=== PATIENT | female | born 1990 | race Hispanic/Latino ===

== ENCOUNTER 2017-12-11 13:23 | Inpatient (IN) | payer MEDICAID ==
[~2017-12-11] VITALS: Ht 157.5 cm; Wt 95.7 kg
[2017-12-11 13:54] LABS: APPEARANCE,URINE Turbid (CLEAR); BILIRUBIN,URINE Negative (NEGATIVE); COLOR,URINE Yellow (YELLOW); GLUCOSE, URINE (UA) Negative (NEGATIVE); KETONES,URINE 15 mg/dL (NEGATIVE); LEUKOCYTE ESTERASE ,URINE Small (NEGATIVE); NITRATE,URINE Negative (NEGATIVE); OCCULT BLOOD,URINE Negative (NEGATIVE); PROTEIN,URINE Negative (NEGATIVE)
[2017-12-11 14:14] LABS: BACTERIA,URINE Rare /HPF (None Seen); RBC,URINE 0-1 /HPF (0-1); SQUAMOUS EPITHELIAL CELL,UR Few /HPF (0-2)
[2017-12-11] MEDS ORDERED: CALCIUM GLUCONATE 1 GM/10 ML VIAL IV PRN (16:30)
[2017-12-11] MEDS ORDERED: MAGNESIUM 4GM PREMIX 100ML 100 ML IV SCH (16:30)
[2017-12-11 16:51] LABS: AMPHET/METH SCREEN,URINE NEGATIVE (NEGATIVE); BARBITURATE SCREEN, URINE NEGATIVE (NEGATIVE); BENZODIAZEPINES SCREEN,URINE NEGATIVE (NEGATIVE); CANNABINOID SCREEN,URINE NEGATIVE (NEGATIVE); COCAINE SCREEN,URINE NEGATIVE (NEGATIVE); OPIATE SCREEN,URINE NEGATIVE (NEGATIVE); PHENCYCLIDINE SCREEN,URINE NEGATIVE (NEGATIVE)
[2017-12-11] MEDS ORDERED: MAGNESIUM SULFATE 1,000 ML IV ONE (16:53)
[2017-12-11] MEDS ORDERED: AMPICILLIN 2GM+NS 100ML 100 ML IV ONE (16:53)
[2017-12-11] MEDS ORDERED: PHARMACY COMMUNICATION MISC SCH (17:00)
[2017-12-11] MEDS ORDERED: CALCIUM GLUCONATE 1 GM in SODIUM CHLORIDE 0.9% 50 ML IV PRN (17:00)
[2017-12-11] MEDS: CELESTONE SOLUSPAN 6 MG/ML 5ML VIAL IM SCH (17:14)
[2017-12-11] MEDS: AMPICILLIN 2GM+NS 100ML 100 ML IV SCH (17:14)
[2017-12-11] MEDS: MAGNESIUM SULFATE 1,000 ML IV PRN (17:15)
[2017-12-11 17:18] LABS: HEMATOCRIT 31.7 % (36-48); MEAN CORPUSCULAR HEMOGLOBIN 27.5 pg (27.0-33.0); MEAN CORPUSCULAR HGB CONC 33.2 g/dL (32.0-36.0); MEAN CORPUSCULAR VOLUME 82.8 fL (79-99); PLATELET COUNT (AUTO) 187 K/uL (130-400); RED BLOOD CELL COUNT(AUTO) 3.83 MIL/uL (4.00-5.50); RED CELL DISTRIBUTION WIDTH 15.2 % (11.0-15.5); WHITE BLOOD COUNT (AUTO) 8.4 K/uL (4.8-10.8)
[2017-12-12] MEDS: AMPICILLIN 2GM+NS 100ML 100 ML IV SCH ×2 (05:41→11:39)
[2017-12-12] MEDS: MAGNESIUM SULFATE 1,000 ML IV PRN (11:38)
[2017-12-12] MEDS: CELESTONE SOLUSPAN 6 MG/ML 5ML VIAL IM SCH (17:15)
[2017-12-12 19:00] VITALS: BP 120/70
[2017-12-13 06:34] LABS: BASOPHILS % (AUTO) 0.1 % (0.0-5.0); HEMATOCRIT 30.5 % (36-48); LYMPHOCYTES % (AUTO) 8.4 % (21.0-51.0); MEAN CORPUSCULAR HEMOGLOBIN 27.7 pg (27.0-33.0); MEAN CORPUSCULAR HGB CONC 33.2 g/dL (32.0-36.0); MEAN CORPUSCULAR VOLUME 83.5 fL (79-99); MONOCYTES % (AUTO) 5.7 % (3.0-13.0); NEUTROPHILS % (AUTO) 85.8 % (40.0-77.0); PLATELET COUNT (AUTO) 187 K/uL (130-400); RED BLOOD CELL COUNT(AUTO) 3.65 MIL/uL (4.00-5.50); RED CELL DISTRIBUTION WIDTH 14.8 % (11.0-15.5); WHITE BLOOD COUNT (AUTO) 10.3 K/uL (4.8-10.8)
[2017-12-13] MEDS ORDERED: LACTATED RINGERS 1000ML 1,000 ML IV ONE (21:11)
[2017-12-13] MEDS ORDERED: LACTATED RINGERS 1000ML 1,000 ML IV SCH (21:30)
[2017-12-14 03:16] LABS: HEPATITIS Bs ANTIGEN SCREEN P Negative (Negative)
[2017-12-14 05:55] LABS: BASOPHILS % (AUTO) 0.3 % (0.0-5.0); EOSINOPHILS % (AUTO) 0.4 % (0.0-8.0); HEMATOCRIT 32.1 % (36-48); LYMPHOCYTES % (AUTO) 16.8 % (21.0-51.0); MEAN CORPUSCULAR HEMOGLOBIN 28.1 pg (27.0-33.0); MEAN CORPUSCULAR HGB CONC 33.3 g/dL (32.0-36.0); MEAN CORPUSCULAR VOLUME 84.5 fL (79-99); MONOCYTES % (AUTO) 7.4 % (3.0-13.0); NEUTROPHILS % (AUTO) 75.1 % (40.0-77.0); PLATELET COUNT (AUTO) 184 K/uL (130-400); RED CELL DISTRIBUTION WIDTH 15.1 % (11.0-15.5)
== END 2017-12-14 10:39 | disposition home or self-care (01) | DRG 566 ==
LOC: EDH 13:23 → OBSVTOIN 13:40 → LDH 13:40
PROVIDERS: ADMIT Obstetrics & Gynecology; ATTEND Obstetrics & Gynecology
DX: O42.913 Preterm premature rupture of membranes, unspecified as to length of time between rupture and onset of labor, third trimester (principal); Z3A.33 33 weeks gestation of pregnancy; Z87.891 Personal history of nicotine dependence
CPT/HCPCS: 36415; 76805; 76815; 76819; 80305; 81001; 85025; 85027; 86592; 86850; 86900; 86901; 87340; 87802; 96360; A4314; J0290; J0702; J3475; J7120

== ENCOUNTER 2018-01-12 14:40 | Observation (INO) | payer MEDICAID ==
[2018-01-12 18:13] LABS: HEMATOCRIT 31.8 % (36-48); MEAN CORPUSCULAR HEMOGLOBIN 27.2 pg (27.0-33.0); MEAN CORPUSCULAR HGB CONC 32.9 g/dL (32.0-36.0); MEAN CORPUSCULAR VOLUME 82.6 fL (79-99); PLATELET COUNT (AUTO) 173 K/uL (130-400); RED BLOOD CELL COUNT(AUTO) 3.85 MIL/uL (4.00-5.50); RED CELL DISTRIBUTION WIDTH 16.1 % (11.0-15.5); WHITE BLOOD COUNT (AUTO) 8.6 K/uL (4.8-10.8)
== END 2018-01-12 18:43 | disposition home or self-care (01) ==
LOC: LDH 14:40
PROVIDERS: ADMIT Obstetrics & Gynecology; ATTEND Obstetrics & Gynecology
DX: O36.5931 Maternal care for other known or suspected poor fetal growth, third trimester, fetus 1 (principal); Z3A.38 38 weeks gestation of pregnancy
CPT/HCPCS: 36415; 76805; 76815; 85027; G0378 ×5

== ENCOUNTER 2018-01-17 20:03 | Inpatient (IN) | payer MEDICAID ==
[~2018-01-17] VITALS: Ht 160 cm; Wt 98.4 kg
[2018-01-17 20:56] LABS: APPEARANCE,URINE Clear (CLEAR); BILIRUBIN,URINE Negative (NEGATIVE); COLOR,URINE Yellow (YELLOW); GLUCOSE, URINE (UA) Negative (NEGATIVE); KETONES,URINE Trace mg/dL (NEGATIVE); LEUKOCYTE ESTERASE ,URINE Small (NEGATIVE); NITRATE,URINE Negative (NEGATIVE); OCCULT BLOOD,URINE Negative (NEGATIVE); PROTEIN,URINE Trace (NEGATIVE)
[2018-01-17 21:17] LABS: MUCUS,URINE Many LPF (None Seen)
[2018-01-17 21:18] LABS: BACTERIA,URINE Few /HPF (None Seen); RBC,URINE None Seen /HPF (0-1)
[2018-01-17] MEDS: LACTATED RINGERS 1000ML 1,000 ML IV PRN (21:26)
[2018-01-17 21:35] LABS: HEMATOCRIT 32.7 % (36-48); MEAN CORPUSCULAR HEMOGLOBIN 27.7 pg (27.0-33.0); MEAN CORPUSCULAR HGB CONC 33.5 g/dL (32.0-36.0); MEAN CORPUSCULAR VOLUME 82.5 fL (79-99); PLATELET COUNT (AUTO) 179 K/uL (130-400); RED BLOOD CELL COUNT(AUTO) 3.96 MIL/uL (4.00-5.50); RED CELL DISTRIBUTION WIDTH 16.4 % (11.0-15.5); WHITE BLOOD COUNT (AUTO) 8.5 K/uL (4.8-10.8)
[2018-01-18] VITALS (10 sets, daily range): BP systolic 113–133; BP diastolic 57–84
[2018-01-18] MEDS: LACTATED RINGERS 1000ML 1,000 ML IV PRN (02:45)
[2018-01-18] MEDS ORDERED: PREN-196 PO (02:50)
[2018-01-18] MEDS ORDERED: LACTATED RINGERS 1000ML 1,000 ML IV ONE (04:25)
[2018-01-18] MEDS ORDERED: OXYTOCIN 10 USP UNITS/ML ONE ×2 (04:25→11:26)
[2018-01-18] MEDS ORDERED: OXYTOCIN 10 USP UNITS/ML 20 UNIT in LACTATED RINGERS 1000ML 1,000 ML IV SCH (05:00)
[2018-01-18] MEDS: PROMETHAZINE HCL 25 MG/ML 1ML AMPULE IM SCH (08:43)
[2018-01-18] MEDS: MEPERIDINE-PF 50 MG/ML SYG IVP SCH (08:43)
[2018-01-18] MEDS ORDERED: WITCH HAZEL 1 PAD TP PRN (10:15)
[2018-01-18] MEDS ORDERED: MEASLES/MUMPS/RUBELLA VACCINE, LIVE 0.5 ML/VIAL SQ PRN (10:15)
[2018-01-18] MEDS ORDERED: LANOLIN 30GM OINTMENT TP PRN (10:15)
[2018-01-18] MEDS ORDERED: ACETAMINOPHEN 325 MG TAB PO PRN (10:15)
[2018-01-18] MEDS ORDERED: OXYTOCIN-LR 20 UNITS/1000 ML 1,000 ML IV SCH (10:15)
[2018-01-18] MEDS ORDERED: DIPH,PERTUSS(ACELL),TET VAC/PF 0.5 ML VIAL IM PRN (10:15)
[2018-01-18] MEDS ORDERED: BENZOCAINE/LANOLIN/ALOE VERA 60 ML AEROSOL TP PRN (10:15)
[2018-01-18] MEDS: IBUPROFEN 600 MG TABLET PO PRN ×2 (10:34→18:48)
[2018-01-18] MEDS: DOCUSATE SODIUM 100 MG CAP PO SCH (21:10)
[2018-01-19 00:40] VITALS: BP 106/54
[2018-01-19 04:41] VITALS: BP 110/68
[2018-01-19 05:42] LABS: HEMATOCRIT 29.1 % (36-48); MEAN CORPUSCULAR HEMOGLOBIN 27.5 pg (27.0-33.0); MEAN CORPUSCULAR HGB CONC 33.1 g/dL (32.0-36.0); PLATELET COUNT (AUTO) 161 K/uL (130-400); RED BLOOD CELL COUNT(AUTO) 3.51 MIL/uL (4.00-5.50); RED CELL DISTRIBUTION WIDTH 16.4 % (11.0-15.5); WHITE BLOOD COUNT (AUTO) 9.8 K/uL (4.8-10.8)
[2018-01-19 07:20] VITALS: BP 129/67
[2018-01-19] MEDS: MEPERIDINE-PF 50 MG/ML SYG IVP SCH (07:55)
[2018-01-19] MEDS: PROMETHAZINE HCL 25 MG/ML 1ML AMPULE IM SCH (07:57)
[2018-01-19 08:21] LABS: HEPATITIS Bs ANTIGEN SCREEN P Negative (Negative)
[2018-01-19] MEDS: DOCUSATE SODIUM 100 MG CAP PO SCH ×2 (08:47→21:01)
[2018-01-19] MEDS: IBUPROFEN 600 MG TABLET PO PRN (08:49)
[2018-01-19 11:34] VITALS: BP 93/57
[2018-01-19 15:16] VITALS: BP 104/70
[2018-01-19 19:19] VITALS: BP 122/61
[2018-01-20 00:08] VITALS: BP 128/75
[2018-01-20] MEDS: IBUPROFEN 600 MG TABLET PO PRN ×2 (03:16→08:32)
[2018-01-20] MEDS: MEPERIDINE-PF 50 MG/ML SYG IVP SCH (03:34)
[2018-01-20 03:50] VITALS: BP 105/58
[2018-01-20 07:17] VITALS: BP 106/62
[2018-01-20] MEDS: PROMETHAZINE HCL 25 MG/ML 1ML AMPULE IM SCH (08:15)
[2018-01-20] MEDS: DOCUSATE SODIUM 100 MG CAP PO SCH (08:31)
[2018-01-20 11:13] VITALS: BP 104/54
[2018-01-20] MEDS ORDERED: DIPH,PERTUSS(ACELL),TET VAC/PF 0.5 ML VIAL IM ONE (12:30)
[2018-01-20 15:28] VITALS: BP 120/64
== END 2018-01-20 18:25 | disposition home or self-care (01) | DRG 560 ==
LOC: LDH 20:03 → WSH 01-18 10:10
PROVIDERS: ADMIT Obstetrics & Gynecology; ATTEND Obstetrics & Gynecology
PROC: 10E0XZZ Delivery of Products of Conception, External Approach (ICD-10-PCS; principal; 2018-01-18)
PROC: 3E0234Z Introduction of Serum, Toxoid and Vaccine into Muscle, Percutaneous Approach (ICD-10-PCS; 2018-01-18)
PROC: 3E0134Z Introduction of Serum, Toxoid and Vaccine into Subcutaneous Tissue, Percutaneous Approach (ICD-10-PCS; 2018-01-18)
DX: O80 Encounter for full-term uncomplicated delivery (principal); Z23 Encounter for immunization; Z37.0 Single live birth; Z3A.40 40 weeks gestation of pregnancy
CPT/HCPCS: 36415; 81001; 85027; 86592; 86850; 86900; 86901; 87340; 90715; A4351; J2175; J2550; J2590; J7120

== ENCOUNTER 2018-09-16 23:21 | Emergency (ER) | payer MEDICAID, OTHER ==
[~2018-09-16 23:21] MED LIST: PREN-196 PO
[2018-09-16 23:52] LABS: BASOPHILS % (AUTO) 0.8 % (0.0-5.0); EOSINOPHILS % (AUTO) 1.7 % (0.0-8.0); HEMATOCRIT 35.8 % (36-48); LYMPHOCYTES % (AUTO) 19.9 % (21.0-51.0); MEAN CORPUSCULAR HEMOGLOBIN 26.6 pg (27.0-33.0); MEAN CORPUSCULAR VOLUME 82.9 fL (79-99); MONOCYTES % (AUTO) 3.9 % (3.0-13.0); NEUTROPHILS % (AUTO) 73.7 % (40.0-77.0); PLATELET COUNT (AUTO) 235 K/uL (130-400); RED BLOOD CELL COUNT(AUTO) 4.32 MIL/uL (4.00-5.50); RED CELL DISTRIBUTION WIDTH 15.5 % (11.0-15.5)
[2018-09-16 23:59] LABS: CREATININE 0.9 mg/dL (0.5-1.5); POTASSIUM 3.6 mmol/L (3.5-5.1)
[2018-09-17 00:12] LABS: APPEARANCE,URINE Cloudy (CLEAR); BILIRUBIN,URINE Negative (NEGATIVE); COLOR,URINE Yellow (YELLOW); GLUCOSE, URINE (UA) Negative (NEGATIVE); KETONES,URINE Negative (NEGATIVE); LEUKOCYTE ESTERASE ,URINE Negative (NEGATIVE); NITRATE,URINE Negative (NEGATIVE); OCCULT BLOOD,URINE Negative (NEGATIVE); PH,URINE 5.5 (5.0-8.0); PROTEIN,URINE Negative (NEGATIVE)
[2018-09-17 00:15] LABS: HCG,QUAL RESULT NEGATIVE (NEGATIVE)
[2018-09-17 00:20] LABS: BACTERIA,URINE None Seen /HPF (None Seen); MUCUS,URINE Moderate LPF (None Seen); RBC,URINE 0-1 /HPF (0-1); SQUAMOUS EPITHELIAL CELL,UR Moderate /HPF (0-2); WBC,URINE 0-1 /HPF (0-1)
== END 2018-09-17 00:53 | disposition home or self-care (01) ==
LOC: EDH 23:21
DX: O26.891 Other specified pregnancy related conditions, first trimester (principal); R10.30 Lower abdominal pain, unspecified; Z3A.01 Less than 8 weeks gestation of pregnancy
CPT/HCPCS: 36415; 76856; 80048; 81001; 81025; 84702; 85025

== ENCOUNTER 2019-05-11 21:30 | Emergency (ER) | payer OTHER ==
[2019-05-11 22:30] LABS: BASOPHILS % (AUTO) 0.8 % (0.0-5.0); EOSINOPHILS % (AUTO) 4.4 % (0.0-8.0); LYMPHOCYTES % (AUTO) 23.9 % (21.0-51.0); MEAN CORPUSCULAR HEMOGLOBIN 28.1 pg (27.0-33.0); MEAN CORPUSCULAR HGB CONC 33.3 g/dL (32.0-36.0); MEAN CORPUSCULAR VOLUME 84.3 fL (79-99); MONOCYTES % (AUTO) 7.5 % (3.0-13.0); NEUTROPHILS % (AUTO) 63.4 % (40.0-77.0); PLATELET COUNT (AUTO) 235 K/uL (130-400); RED BLOOD CELL COUNT(AUTO) 4.27 MIL/uL (4.00-5.50); RED CELL DISTRIBUTION WIDTH 14.7 % (11.0-15.5); WHITE BLOOD COUNT (AUTO) 7.6 K/uL (4.8-10.8)
[2019-05-11] MEDS ORDERED: AZITHROMYCIN 250 MG TABLET PO ONE (22:39)
[2019-05-11] MEDS ORDERED: CEFTRIAXONE SODIUM 500 MG VIAL ONE (22:39)
[2019-05-11 22:40] LABS: CREATININE 0.8 mg/dL (0.5-1.5); POTASSIUM 3.2 mmol/L (3.5-5.1)
[2019-05-11 22:44] LABS: ALBUMIN 3.2 g/dL (3.5-5.0); APPEARANCE,URINE Cloudy (CLEAR); BILIRUBIN,TOTAL 0.2 mg/dL (0.2-1.0); BILIRUBIN,URINE Negative (NEGATIVE); COLOR,URINE Dark Yellow (YELLOW); GLUCOSE, URINE (UA) Negative (NEGATIVE); KETONES,URINE Negative (NEGATIVE); LEUKOCYTE ESTERASE ,URINE Trace (NEGATIVE); NITRATE,URINE Negative (NEGATIVE); OCCULT BLOOD,URINE Trace (NEGATIVE); PH,URINE 5.5 (5.0-8.0); PROTEIN,URINE Trace mg/dL (NEGATIVE); TOTAL PROTEIN, SERUM 7.9 g/dL (6.0-8.3)
[2019-05-11 22:46] LABS: HCG,QUAL RESULT NEGATIVE (NEGATIVE)
[2019-05-11 23:04] LABS: BACTERIA,URINE Rare /HPF (None Seen); MUCUS,URINE Many LPF (None Seen); SQUAMOUS EPITHELIAL CELL,UR Moderate /HPF (0-2)
[2019-05-11] MEDS ORDERED: POTASSIUM CHLORIDE 20 MEQ ERTAB PO ONE (23:14)
[2019-05-11] MEDS ORDERED: DOXYCYCLINE HYCLATE 100 MG TABLET PO ONE (23:21)
== END 2019-05-11 23:32 | disposition home or self-care (01) ==
LOC: EDH 21:30
DX: N39.0 Urinary tract infection, site not specified (principal)
CPT/HCPCS: 36415; 80053; 81001; 81025; 85025; 87088; 87210; 87486; 87797; 96372; 99284; J0696

== ENCOUNTER 2019-08-03 15:14 | Emergency (ER) | payer OTHER ==
[2019-08-03] MEDS ORDERED: ONDANSETRON ODT 4 MG TAB ONE (15:27)
[2019-08-03 16:48] LABS: APPEARANCE,URINE CLOUDY (CLEAR); BILIRUBIN,URINE NEGATIVE (NEGATIVE); COLOR,URINE YELLOW (YELLOW); GLUCOSE, URINE (UA) NEGATIVE (NEGATIVE); KETONES,URINE NEGATIVE (NEGATIVE); LEUKOCYTE ESTERASE ,URINE TRACE (NEGATIVE); NITRATE,URINE NEGATIVE (NEGATIVE); OCCULT BLOOD,URINE NEGATIVE (NEGATIVE); PROTEIN,URINE NEGATIVE (NEGATIVE); UROBILINOGEN,URINE 0.2 mg/dL (0.2-1.0)
[2019-08-03 17:04] LABS: RBC,URINE None Seen /HPF (0-1)
[2019-08-03 17:05] LABS: AMORPHOUS SEDIMENT,UR Few /LPF (None Seen); BACTERIA,URINE Many /HPF (None Seen); SQUAMOUS EPITHELIAL CELL,UR 30-50 /HPF (0-2)
== END 2019-08-03 17:41 | disposition home or self-care (01) ==
LOC: EDH 15:14
DX: O26.891 Other specified pregnancy related conditions, first trimester (principal); R10.2 Pelvic and perineal pain; Z3A.01 Less than 8 weeks gestation of pregnancy
CPT/HCPCS: 36415; 76801; 81001; 84702; 86900; 86901

== ENCOUNTER 2019-11-14 15:45 | Observation (INO) | payer MEDICAID ==
[~2019-11-14] VITALS: Ht 157.5 cm; Wt 93.4 kg
[2019-11-14 16:32] LABS: APPEARANCE,URINE Cloudy (CLEAR); BILIRUBIN,URINE Negative (NEGATIVE); COLOR,URINE Yellow (YELLOW); GLUCOSE, URINE (UA) Negative (NEGATIVE); KETONES,URINE Negative (NEGATIVE); LEUKOCYTE ESTERASE ,URINE Small (NEGATIVE); NITRATE,URINE Negative (NEGATIVE); OCCULT BLOOD,URINE Negative (NEGATIVE); PH,URINE 5.5 (5.0-8.0); PROTEIN,URINE Negative (NEGATIVE)
[2019-11-14 16:34] VITALS: BP 114/57
[2019-11-14 16:42] LABS: RBC,URINE 0-1 /HPF (0-1)
[2019-11-14 16:43] LABS: BACTERIA,URINE Few /HPF (None Seen); SQUAMOUS EPITHELIAL CELL,UR Moderate /HPF (0-2)
[2019-11-14 16:44] LABS: MUCUS,URINE Few LPF (None Seen)
== END 2019-11-14 17:40 | disposition home or self-care (01) ==
LOC: LDH 15:45
PROVIDERS: ADMIT Specialist; ATTEND Specialist
DX: O26.892 Other specified pregnancy related conditions, second trimester (principal); Z3A.22 22 weeks gestation of pregnancy
CPT/HCPCS: 76805; 81001; G0378 ×3

== ENCOUNTER 2020-02-18 22:47 | Observation (INO) | payer MEDICAID ==
[~2020-02-18] VITALS: Ht 160 cm; Wt 98.4 kg
[2020-02-18 23:39] VITALS: BP 113/70
[2020-02-18] MEDS ORDERED: LACTATED RINGERS 1000ML IV SCH (23:45)
[2020-02-18 23:48] LABS: APPEARANCE,URINE Cloudy (CLEAR); BILIRUBIN,URINE Negative (NEGATIVE); COLOR,URINE Yellow (YELLOW); GLUCOSE, URINE (UA) Negative (NEGATIVE); KETONES,URINE Trace mg/dL (NEGATIVE); LEUKOCYTE ESTERASE ,URINE Small (NEGATIVE); NITRATE,URINE Negative (NEGATIVE); OCCULT BLOOD,URINE Negative (NEGATIVE); PROTEIN,URINE Trace mg/dL (NEGATIVE)
[2020-02-18 23:56] LABS: AMPHET/METH SCREEN,URINE NEGATIVE (NEGATIVE); BARBITURATE SCREEN, URINE NEGATIVE (NEGATIVE); BENZODIAZEPINES SCREEN,URINE NEGATIVE (NEGATIVE); CANNABINOID SCREEN,URINE NEGATIVE (NEGATIVE); COCAINE SCREEN,URINE NEGATIVE (NEGATIVE); OPIATE SCREEN,URINE NEGATIVE (NEGATIVE); PHENCYCLIDINE SCREEN,URINE NEGATIVE (NEGATIVE)
[2020-02-19 00:05] LABS: BACTERIA,URINE Moderate /HPF (None Seen); RBC,URINE 0-1 /HPF (0-1)
== END 2020-02-19 00:51 | disposition home or self-care (01) ==
LOC: EDH 22:47 → LDH 22:48
DX: O60.03 Preterm labor without delivery, third trimester (principal); Z3A.35 35 weeks gestation of pregnancy
CPT/HCPCS: 80305; 81001; 87088; 96360; 99284; G0378 ×2; J7120

== ENCOUNTER 2020-03-06 20:03 | Inpatient (IN) | payer MEDICAID ==
[~2020-03-06] VITALS: Ht 157.5 cm; Wt 99.3 kg
[2020-03-06] MEDS ORDERED: PREN-196 PO (20:33)
[2020-03-06 20:51] LABS: APPEARANCE,URINE CLOUDY (CLEAR); BILIRUBIN,URINE NEGATIVE (NEGATIVE); COLOR,URINE YELLOW (YELLOW); GLUCOSE, URINE (UA) NEGATIVE (NEGATIVE); KETONES,URINE NEGATIVE (NEGATIVE); LEUKOCYTE ESTERASE ,URINE MODERATE (NEGATIVE); NITRATE,URINE NEGATIVE (NEGATIVE); OCCULT BLOOD,URINE MODERATE (NEGATIVE); PH,URINE 6.5 (5.0-8.0); PROTEIN,URINE TRACE mg/dL (NEGATIVE)
[2020-03-06 21:00] LABS: AMPHET/METH SCREEN,URINE NEGATIVE (NEGATIVE); BARBITURATE SCREEN, URINE NEGATIVE (NEGATIVE); BENZODIAZEPINES SCREEN,URINE NEGATIVE (NEGATIVE); CANNABINOID SCREEN,URINE NEGATIVE (NEGATIVE); COCAINE SCREEN,URINE NEGATIVE (NEGATIVE); OPIATE SCREEN,URINE NEGATIVE (NEGATIVE); PHENCYCLIDINE SCREEN,URINE NEGATIVE (NEGATIVE)
[2020-03-06 21:01] LABS: BACTERIA,URINE Few /HPF (None Seen)
[2020-03-06 21:02] LABS: MUCUS,URINE Rare LPF (None Seen); SQUAMOUS EPITHELIAL CELL,UR Moderate /HPF (0-2)
[2020-03-06] MEDS ORDERED: AMPICILLIN 2GM+NS 100ML 100 ML IV SCH (21:30)
[2020-03-06] MEDS ORDERED: BUTORPHANOL TARTRATE 2 MG/ML IVP PRN (21:30)
[2020-03-06] MEDS: LACTATED RINGERS 1000ML 1,000 ML IV PRN (21:57)
[2020-03-06 22:07] LABS: HEMATOCRIT 33.3 % (36-48); MEAN CORPUSCULAR HEMOGLOBIN 24.6 pg (27.0-33.0); PLATELET COUNT (AUTO) 194 K/uL (130-400); RED BLOOD CELL COUNT(AUTO) 4.06 MIL/uL (4.00-5.50); RED CELL DISTRIBUTION WIDTH 15.5 % (11.0-15.5); WHITE BLOOD COUNT (AUTO) 10.2 K/uL (4.8-10.8)
[2020-03-06 22:40] LABS: PLATELET MORPHOLOGY LARGE PLTS PRESENT
[2020-03-07] MEDS: AMPICILLIN 1GM+NS 50ML 50 ML IV SCH ×2 (01:49→05:53)
[2020-03-07 03:21] VITALS: BP 108/69
[2020-03-07] MEDS: LACTATED RINGERS 1000ML 1,000 ML IV PRN ×2 (04:50→10:09)
[2020-03-07] MEDS ORDERED: OXYTOCIN 10 USP UNITS/ML 20 UNIT in LACTATED RINGERS 1000ML 1,000 ML IV SCH (09:45)
[2020-03-07] MEDS ORDERED: PROMETHAZINE HCL 25 MG/ML 1ML AMPULE IM SCH (09:45)
[2020-03-07] MEDS ORDERED: OXYTOCIN-LR 20 UNITS/1000 ML 1,000 ML IV ONE ×2 (10:03→12:56)
[2020-03-07] MEDS: MEPERIDINE-PF 50 MG/ML SYG IVP SCH (10:10)
[2020-03-07 13:16] LABS: RAPID PLASMA REAGIN NONREACTIVE (NONREACTIVE)
[2020-03-07] MEDS ORDERED: WITCH HAZEL 1 PAD TP PRN (14:15)
[2020-03-07] MEDS ORDERED: ACETAMINOPHEN-CODEINE 300/30MG TAB PO PRN (14:15)
[2020-03-07] MEDS ORDERED: DIPH,PERTUSS(ACELL),TET VAC/PF 0.5 ML VIAL IM PRN (14:15)
[2020-03-07] MEDS ORDERED: BENZOCAINE/LANOLIN/ALOE VERA 60 ML AEROSOL TP PRN (14:15)
[2020-03-07] MEDS ORDERED: OXYTOCIN-LR 20 UNITS/1000 ML 1,000 ML IV SCH (14:15)
[2020-03-07] MEDS ORDERED: LANOLIN 30GM OINTMENT TP PRN (14:15)
[2020-03-07 16:05] VITALS: BP 134/76
[2020-03-07] MEDS: IBUPROFEN 600 MG TABLET PO PRN (17:51)
[2020-03-07 19:50] VITALS: BP 123/72
[2020-03-07] MEDS: DOCUSATE SODIUM 100 MG CAP PO SCH (20:38)
[2020-03-07 23:19] VITALS: BP 113/68
[2020-03-08 04:00] VITALS: BP 125/71
[2020-03-08 06:14] LABS: HEPATITIS Bs ANTIGEN SCREEN P Negative (Negative)
[2020-03-08 07:00] VITALS: BP 106/67
[2020-03-08] MEDS: DOCUSATE SODIUM 100 MG CAP PO SCH (07:48)
[2020-03-08] MEDS: IBUPROFEN 600 MG TABLET PO PRN (07:51)
--- NOTE | 2020-03-08 09:30 | NUR ---
Referral: Marijuana Use 1 Month Before SW met with pt. who is alert and cooperative; reports that this is her fifth delivery. Children are 7y, 5y, 3, 2y and currently being cared for by her mother. Children are reportedly current with immunizations. Pt. is single, not employed outside the home and cares for children herself. Pt. reported that her mother will assist her with care of children post discharge. Benefits in place include Medicaid, WIC and [place] [id number]/month. All utilities connected in the home and family has own transportation/carseat in place. Pt's boyfriend Dayne Echavarria will provide transportation home at discharge. Pt. denied any history of PPD depression, any history of mental illness, denied any domestic violence, denied any use of marijuana or other illicit drugs. Pt. denied any smokers in the home. Pt. verbalized an knowlede/understanding of PPD. Pt. voiced no ss need or concerns. Addendum: 03/08/20 at 1039 by ASHLEY CAMILO SS Amended: Links added.
[2020-03-08] MEDS: MEPERIDINE-PF 50 MG/ML SYG IVP SCH (10:21)
[2020-03-08 11:28] VITALS: BP 120/73
--- NOTE | 2020-03-08 14:35 | NUR ---
PATIENT LEFT UNIT VIA WHEELCHAIR WITH BABY IN ARMS. PERSONAL VEHICLE USED FOR TRANSPORTATION ACCOMPANIED BY SIGNIFICANT OTHER. BABY SECURE IN CARSEAT.
== END 2020-03-08 14:35 | disposition home or self-care (01) | DRG 560 ==
LOC: EDH 20:03 → LDH 20:04 → OBSVTOIN 20:04 → WSH 03-07 16:00
PROC: 10E0XZZ Delivery of Products of Conception, External Approach (ICD-10-PCS; principal; 2020-03-07)
PROC: 10907ZC Drainage of Amniotic Fluid, Therapeutic from Products of Conception, Via Natural or Artificial Opening (ICD-10-PCS; 2020-03-07)
DX: O80 Encounter for full-term uncomplicated delivery (principal); Z3A.38 38 weeks gestation of pregnancy; Z37.0 Single live birth
CPT/HCPCS: 36415; 80305; 81001; 85027; 86592; 86701; 86850; 86900; 86901; 87088; 87340; 87390; 90715; 96360; 96361; A4351; G0378; J0290; J0595; J2175; J2550; J2590; J7120

== ENCOUNTER 2020-08-18 17:13 | Emergency (ER) | payer MEDICAID ==
[2020-08-18 17:38] LABS: APPEARANCE,URINE CLOUDY (CLEAR); BILIRUBIN,URINE NEGATIVE (NEGATIVE); COLOR,URINE YELLOW (YELLOW); GLUCOSE, URINE (UA) NEGATIVE (NEGATIVE); KETONES,URINE NEGATIVE (NEGATIVE); LEUKOCYTE ESTERASE ,URINE NEGATIVE (NEGATIVE); NITRATE,URINE NEGATIVE (NEGATIVE); OCCULT BLOOD,URINE LARGE (NEGATIVE); PH,URINE 5.5 (5.0-8.0); PROTEIN,URINE NEGATIVE (NEGATIVE); UROBILINOGEN,URINE 0.2 mg/dL (0.2-1.0)
[2020-08-18 17:42] LABS: HCG,QUAL RESULT NEGATIVE (NEGATIVE)
[2020-08-18 17:46] LABS: BACTERIA,URINE Rare /HPF (None Seen); RBC,URINE 26-50 /HPF (0-1); SQUAMOUS EPITHELIAL CELL,UR Few /HPF (0-2); WBC,URINE 0-1 /HPF (0-1)
[2020-08-18 17:47] LABS: MUCUS,URINE Few LPF (None Seen)
[2020-08-18 17:55] LABS: BASOPHILS % (AUTO) 0.4 % (0.0-5.0); HEMATOCRIT 32.7 % (36-48); LYMPHOCYTES % (AUTO) 18.1 % (21.0-51.0); MEAN CORPUSCULAR HEMOGLOBIN 21.9 pg (27.0-33.0); MEAN CORPUSCULAR HGB CONC 29.1 g/dL (32.0-36.0); MEAN CORPUSCULAR VOLUME 75.3 fL (79-99); MONOCYTES % (AUTO) 4.8 % (3.0-13.0); NEUTROPHILS % (AUTO) 74.5 % (40.0-77.0); PLATELET COUNT (AUTO) 297 K/uL (130-400); RED BLOOD CELL COUNT(AUTO) 4.34 MIL/uL (4.00-5.50); RED CELL DISTRIBUTION WIDTH 16.6 % (11.0-15.5); WHITE BLOOD COUNT (AUTO) 9.5 K/uL (4.8-10.8)
[2020-08-18 18:10] LABS: CREATININE 0.8 mg/dL (0.5-1.5); POTASSIUM 3.4 mmol/L (3.5-5.1)
[2020-08-18 18:14] LABS: ALBUMIN 3.5 g/dL (3.5-5.0); BILIRUBIN,TOTAL 0.1 mg/dL (0.2-1.0)
[2020-08-18] MEDS ORDERED: KETOROLAC TROMETHAMINE 30MG/ML ONE (18:15)
== END 2020-08-18 20:31 | disposition home or self-care (01) ==
LOC: EDH 17:13
DX: N94.6 Dysmenorrhea, unspecified (principal); D25.9 Leiomyoma of uterus, unspecified; D64.89 Other specified anemias; E87.6 Hypokalemia
CPT/HCPCS: 36415; 76856; 80053; 81001; 81025; 83690; 85025; 96372; 99284; J1885

== ENCOUNTER 2024-07-20 20:18 | Emergency (ER) | payer SELFPAY ==
[~2024-07-20] VITALS: Ht 160 cm; Wt 108.4 kg
[2024-07-20 20:57] LABS: BASOPHILS # (AUTO) 0.03 K/uL (0.00-0.20); BASOPHILS % (AUTO) 0.3 % (0.0-5.0); EOSINOPHILS # (AUTO) 0.36 K/uL (0.00-0.70); EOSINOPHILS % (AUTO) 3.9 % (0.0-8.0); HEMATOCRIT 36.2 % (36-48); IMMATURE GRANULOCYTE ABSOLUTE 0.04 K/uL (0-1); LYMPHOCYTES # (AUTO) 1.7 K/uL (1.0-4.8); MEAN CORPUSCULAR HEMOGLOBIN 28.4 pg (27.0-33.0); MEAN CORPUSCULAR HGB CONC 32.6 g/dL (32.0-36.0); MEAN CORPUSCULAR VOLUME 87.2 fL (79-99); MONOCYTES # (AUTO) 0.5 K/uL (0.1-1.0); MONOCYTES % (AUTO) 5.2 % (3.0-13.0); NEUTROPHILS # (AUTO) 6.5 K/uL (1.8-7.7); NEUTROPHILS % (AUTO) 71.2 % (40.0-77.0); PLATELET COUNT (AUTO) 193 K/uL (130-400); RED BLOOD CELL COUNT(AUTO) 4.15 MIL/uL (4.00-5.50); RED CELL DISTRIBUTION WIDTH 13.4 % (11.0-15.5); WHITE BLOOD COUNT (AUTO) 9.2 K/uL (4.8-10.8)
[2024-07-20 21:04] LABS: CREATININE 0.5 mg/dL (0.5-1.0); POTASSIUM 3.6 mmol/L (3.5-5.1)
[2024-07-21 00:15] LABS: APPEARANCE,URINE CLOUDY (CLEAR); BILIRUBIN,URINE NEGATIVE (NEGATIVE); COLOR,URINE YELLOW (YELLOW); GLUCOSE, URINE (UA) NEGATIVE (NEGATIVE); KETONES,URINE 5 mg/dL (NEGATIVE); LEUKOCYTE ESTERASE ,URINE NEGATIVE Leu/uL (NEGATIVE); NITRATE,URINE NEGATIVE (NEGATIVE); OCCULT BLOOD,URINE NEGATIVE (NEGATIVE); PROTEIN,URINE 20 mg/dL (NEGATIVE); UROBILINOGEN,URINE 0.2 mg/dL (0.2-1.0)
[2024-07-21 00:18] LABS: HCG,QUALITATIVE URINE POSITIVE (NEGATIVE)
[2024-07-21 00:19] LABS: BACTERIA,URINE FEW /HPF (None Seen); MUCUS,URINE RARE LPF (None Seen); SQUAMOUS EPITHELIAL CELL,UR MANY /HPF (0-2)
[2024-07-21] MEDS: acetaMINOPHEN 325 MG TAB PO ONE (00:20)
--- NOTE | 2024-07-21 00:33 | ERN ---
General Chief Complaint: Rib Pain Stated Complaint: PAIN UNDER RIBS/LOWER DIAPHRAM Time Seen by MD: 20:24 Time Seen by Midlevel: 20:24 Source: patient History of Present Illness Initial Comments 33-year-old female who presents to the ED due to rib pain. Patient reports she took a home test which was positive but is "unsure due to non consistent menstrual cycle". Denies any chest pain, abdominal pain, difficulty breathing or further associated symptoms. Denies injuries or trauma. A1. History of preeclampsia during otherwise denies further significant past medical history. Allergies: Coded Allergies: No Known Drug Allergies (Unverified Allergy, Unknown, 01/04/17) Home Meds Reported Medications Vit No.124/Iron/FA ( Vitamin Tablet) 1 Each Tablet, 1 EACH PO DAILYDINNER, TAB 03/06/20 Vit No.124/Iron/FA ( Vitamin Tablet) 1 Each Tablet, 1 EACH PO DAILYBKFST, TAB 01/18/18 Past Medical History Past Medical History: No Pertinent History Past Surgical History: None ROS Dictation Constitutional: Negative for fever,chills, and weight loss Eyes: Negative for injury, pain,redness, and discharge ENT: Negative for injury,pain or swelling Cardiovascular: Negative for chest pain, palpitations, and edema Respiratory: Negative for shortness of breath, cough, and wheezing Chest: Positive for rib pain Abdomen/GI: Negative for abdominal pain, nausea, vomiting, diarrhea, and constipation Back: Negative for injury and pain : Negative for painful urination, bleeding or discharge MS/Extremity: Negative for injury and deformity Skin: Negative for rash, and discoloration Neuro: Negative for headache, weakness, numbness, tingling, and seizure Psych: Negative for suicide ideation, homicidal ideation, and hallucinations Physical Exam Physical Exam Dictation General: awake, alert, no acute distress Head/Face: Normocephalic, atraumatic Eyes: normal conjunctiva ENT: oral cavity clear, oral mucosa moist Neck: Normal range of motion Cardiovascular: RRR, normal S1/S2 Respiratory: CTAB, no respiratory distress, no rales or wheezes Chest: No deformities palpated, nontender Abdomen: Soft, non-tender, non-distended, no guarding or rebound. Skin: Warm, dry, normal turgor, no rash MS/Extremity: Pulses equal, no cyanosis, neurovascular intact, FROM Neuro: COAx4, GCS 15, no neurological deficits, normal gait Psych: Normal behavior, mood, and affect normal Results Laboratory and Microbiology Lab and Micro Result Laboratory Tests Test 07/20/24 20:50 07/21/24 00:06 White Blood Count 9.2 K/uL (4.8-10.8) Red Blood Count 4.15 MIL/uL (4.00-5.50) Hemoglobin 11.8 g/dL (12.0-16.0) L Hematocrit 36.2 % (36-48) Mean Corpuscular Volume 87.2 fL (79-99) Mean Corpuscular Hemoglobin 28.4 pg (27.0-33.0) Mean Corpuscular Hemoglobin Concent 32.6 g/dL (32.0-36.0) Red Cell Distribution Width 13.4 % (11.0-15.5) Platelet Count 193 K/uL (130-400) Mean Platelet Volume 11.4 fL (7.5-10.5) H Immature Granulocyte % (Auto) 0.4 % (0-1) Neutrophils (%) (Auto) 71.2 % (40.0-77.0) Lymphocytes (%) (Auto) 19.0 % (21.0-51.0) L Monocytes (%) (Auto) 5.2 % (3.0-13.0) Eosinophils (%) (Auto) 3.9 % (0.0-8.0) Basophils (%) (Auto) 0.3 % (0.0-5.0) Neutrophils # (Auto) 6.5 K/uL (1.8-7.7) Lymphocytes # (Auto) 1.7 K/uL (1.0-4.8) Monocytes # (Auto) 0.5 K/uL (0.1-1.0) Eosinophils # (Auto) 0.36 K/uL (0.00-0.70) Basophils # (Auto) 0.03 K/uL (0.00-0.20) Absolute Immature Granulocyte (auto 0.04 K/uL (0-1) Nucleated Red Blood Cells 0.0 % (0.0-0.19) Sodium Level 133 mmol/L (136-145) L Potassium Level 3.6 mmol/L (3.5-5.1) Chloride Level 100 mmol/L (101-111) L Carbon Dioxide Level 28 mmol/L (21-32) Blood Urea Nitrogen 9 mg/dL (7-18) Creatinine 0.5 mg/dL (0.5-1.0) Glomerular Filtration Rate Calc 129 mL/min (>90) Random Glucose 103 mg/dL (70-105) Total Calcium 8.7 mg/dL (8.5-10.1) Human Chorionic Gonadotropin, Quant 97468 mIU/mL (0-5) H Urine Color YELLOW (YELLOW) Urine Appearance CLOUDY (CLEAR) H Urine pH 6.0 (5.0-8.0) Urine Specific Ranger 1.034 (1.001-1.031) Urine Protein 20 mg/dL (NEGATIVE) H Urine Glucose (UA) NEGATIVE mg/dL (NEGATIVE) Urine Ketones 5 mg/dL (NEGATIVE) H Urine Occult Blood NEGATIVE (NEGATIVE) Urine Nitrate NEGATIVE (NEGATIVE) Urine Bilirubin NEGATIVE mg/dL (NEGATIVE) Urine Urobilinogen 0.2 mg/dL (0.2-1.0) Urine Leukocyte Esterase NEGATIVE Kendall/uL Urine RBC 2-5 /HPF (0-1) H Urine WBC 2-5 /HPF (0-1) H Urine Squamous Epithelial Cells MANY /HPF (0-2) Urine Bacteria FEW /HPF (None Seen) Urine HCG, Qualitative POSITIVE (NEGATIVE) H Labs Reviewed?: Yes MDM MDM: Differential diagnosis: , rib pain, musculoskeletal pain. Rationale: 33-year-old female who presents to the ED due to rib pain. Patient reports she took a home test which was positive but is "unsure due to non consistent menstrual cycle". Denies any chest pain, abdominal pain, difficulty breathing or further associated symptoms. A1. History of preeclampsia during otherwise denies further significant past medical history. Labs obtained are nonspecific. [place] [id number]. Patient was administered acetaminophen in the ED. Patient was educated on findings and diagnosis. It was discussed with patient due to unable to obtain x-rays. Per physical examination patient is nontender to palpation of the ribs and no deformities noted. Advised to follow up with PCP. Return to the ED if any worsening symptoms. Patient verbalized understanding. Patient stable for discharge. There are no social concerns with this patient. I independently interpreted the test that were performed, results were reviewed by me and considered findings on radiology if ordered. Medical management and examination interpretation discussions were had by me with other qualified healthcare professionals as indicated for the patient's care. ED Course Orders Procedure Category Date Status Time Cbc With Differential LAB 07/20/24 Complete 20:42 Basic Metabolic Panel LAB 07/20/24 Complete 20:42 Urinalysis LAB 07/20/24 Complete W/Microscopic 20:42 ,Urine Test LAB 07/20/24 Complete 20:42 Hcg,Quantitative LAB 07/20/24 Complete 21:30 Acetaminophen 325 Tab PHA 07/20/24 Complete (Tylenol 325mg Tab 23:00 Current Medications Medications (Trade) Dose Ordered Sig/Andrew Route PRN Reason Start Time Stop Time Status Last Admin Dose Admin Acetaminophen (TYLenol 325MG TAB) 650 mg ONCE ONCE PO 07/20/24 23:00 07/20/24 23:01 DC 07/21/24 00:20 Vital Signs Date Time Temp Pulse Resp B/P (MAP) Pulse Ox O2 Delivery O2 Flow Rate FiO2 07/21/24 00:37 98.4 79 19 124/76 99 Room Air* 0 21 07/20/24 20:33 97.2 75 20 121/78 75 Room Air DX & DISP Disposition: Discharge Departure Impression: Primary Impression: Additional Impressions: Rib pain, Musculoskeletal pain Condition: Stable Additional Instructions: Discharge home. Rest. Follow up with primary care DrJanae in 24 hours. Return to the ER for any acute changes or worsening symptoms. If any medications were prescribed take as directed. Okay to continue home medications unless otherwise discussed during your visit in the emergency room today. Patient was also advised to follow-up with primary care physician in 1 to 2 days for continued monitoring. Referrals: SELF,REFERRAL (PCP) ANDREI KINGSTON JR, MD INFANTE, NOEMI MD I participated in the following activities of this patient's care: For this patient encounter, I reviewed the PA or SOFTWARE ENGINE[employer] SAL[employer] documentation, treatment plan, and medical decision making. I did not have [id number] time with this patient. I will sign as the reviewing DrJanae And agree with the treatment plan and disposition. CHAO GONZALEZ Jul 21, 2024 00:33
[2024-07-21 00:37] VITALS: BP 124/76; PULSE 79; RESP 19; TEMP 98.4; O2SAT 99
== END 2024-07-21 00:42 | disposition home or self-care (01) ==
LOC: EDH 20:18
DX: O99.891 Other specified diseases and conditions complicating pregnancy (principal); R07.81 Pleurodynia; R10.2 Pelvic and perineal pain; Z79.899 Other long term (current) drug therapy
CPT/HCPCS: 36415; 80048; 81001; 81025; 84702; 85025; 99283

== ENCOUNTER 2025-06-07 06:54 | Emergency (ER) | payer MEDICAID ==
[~2025-06-07] VITALS: Ht 160 cm; Wt 109.3 kg
[2025-06-07 07:47] LABS: RAPID GROUP A STREP negative (NEGATIVE)
--- NOTE | 2025-06-07 07:48 | ERN ---
ED Note History of Present Illness Stated Complaint: C/O RT EARACHE,COUGH,SORE THROAT, CONGESTION Chief Complaint: Sore Throat Time Seen by MD: 07:12 Dictation: 34-year-old female with cough cold congestion and right ear pain since yesterday no significant past medical history Allergies: Coded Allergies: No Known Drug Allergies (Unverified Allergy, Unknown, 01/04/17) Home Meds Reported Medications Vit No.124/Iron/FA ( Vitamin Tablet) 1 Each Tablet, 1 EACH PO DAILYDINNER, TAB 03/06/20 Vit No.124/Iron/FA ( Vitamin Tablet) 1 Each Tablet, 1 EACH PO DAILYBKFST, TAB 01/18/18 Past Medical History Past Medical History: No Pertinent History Surgical History: LMP: May 12, 2025 Review of System Dictation Constitutional: Per HPI Eyes: Negative for injury, pain,redness, and discharge ENT: Per HPI Cardiovascular: Negative for chest pain, palpitations, and edema Respiratory: Negative for shortness of breath, positive for cough Abdomen/GI: Negative for abdominal pain, nausea, vomiting, diarrhea, and constipation Back: Negative for injury and pain : Negative for injury, bleeding and discharge MS/Extremity: Negative for injury and deformity Skin: Negative for rash, and discoloration Neuro: Negative for headache, weakness, numbness, tingling, and seizure Psych: Negative for suicide ideation, homicidal ideation, and hallucinations Initial Vital Sign VS Vital Signs Date Time Temp Pulse Resp B/P (MAP) Pulse Ox O2 Delivery O2 Flow Rate FiO2 06/07/25 06:55 97.5 89 20 125/78 100 Room Air Physical Exam Dictation General: awake, alert, NAD Head/Face: Normocephalic, atraumatic Eyes: PERRL, EOMI, vision at baseline ENT: oral cavity clear, right ear canal erythema, no signs of infection Neck: Trachea midline, supple, no nuchal rigidity Cardiovascular: RRR, normal S1/S2, No MRGs, no JVD Respiratory: CTAB, no respiratory distress, No rales or wheezes Abdomen: Soft, non-tender, non-distended, normal bowel sounds, no guarding or rebound. Skin: Warm, dry, normal turgor, no rash MS/Extremity: Pulses equal, no cyanosis, neurovascular intact, FROM Neuro: COAx4, GCS 15, strength 5/5, CN 2-12 intact, normal cerebellar exam, normal gait, Psych: Normal behavior, mood, and affect normal Results (Laboratory/Radiology) Laboratory/Radiology Laboratory Tests Test 06/07/25 07:00 Influenza Type A Antigen Negative For Type A Influenza Type B Antigen Negative For Type B SARS-CoV-2, RNA, NAAT NEGATIVE SARS CoV-2 Group A Streptococcus Rapid negative (NEGATIVE) Labs Reviewed?: Yes ED Course ED Course Orders Procedure Category Date Status Time Covid Rna Naat LAB 06/07/25 Complete 07:02 Influenza Type A & B, LAB 06/07/25 Complete Rapid 07:02 Rapid (Group A Strep) LAB 06/07/25 Complete 07:02 Vital Signs Date Time Temp Pulse Resp B/P (MAP) Pulse Ox O2 Delivery O2 Flow Rate FiO2 06/07/25 06:55 97.5 89 20 125/78 100 Room Air Medical Decision Making MDM MDM: Differential diagnosis: Rationale: Tests considered and ordered secondary to shared decision making include: Previous outside records reviewed: Old ER visits. Risk of complication and/or morbidity or mortality of patient management: None Medications-Per medication reconciliation Need for hospitalization: Patient does not meet criteria for hospitalization. Need for emergency major/minor surgery: No There are no social concerns with this patient. Prescription drug management Prescriptions will include symptomatic care Patient's prior external medical records from other ER visits were reviewed by me as indicated. Prior testing and results from previous visits were reviewed. Prior tests were taken into account with medical decision making and resource utilization, independent historian/historians were used to obtain complete medical history. I independently interpreted the test that were performed, results were reviewed by me and considered findings on radiology if ordered. Medical management and examination interpretation discussions were had by me with other qualified healthcare professionals as indicated for the patient's care. 34-year-old female URI right ear infection prescriptions given stable for discharge. DX & DISP Disposition: Discharge Departure Impression: Primary Impression: Right otitis media Additional Impression: Acute URI Condition: Stable Scripts Amoxicillin/Potassium Clav (Amox Tr-K Clv 875-125 mg Tab) 875 Mg-125 Mg Tablet 1 EACH PO BID for 7 Days, #14 TAB 0 Refills Prov: MIREILLE MCKNIGHT MD 06/07/25 Referrals: SELF,REFERRAL (PCP) MIREILLE MCKNIGHT MD Jun 07, 2025 07:48
[2025-06-07 07:54] LABS: SARS-CoV-2, RNA, NAAT NEGATIVE SARS CoV-2 (NEGATIVE)
[2025-06-07 07:57] LABS: INFLUENZA TYPE A Negative For Type A (NEGATIVE); INFLUENZA TYPE B Negative For Type B (NEGATIVE)
[2025-06-07] MEDS ORDERED: AMOX1TAB16 PO (08:05)
[2025-06-07 08:34] VITALS: BP 124/68; PULSE 90; RESP 20; TEMP 98.8; O2SAT 97
== END 2025-06-07 08:46 | disposition home or self-care (01) ==
LOC: EDH 06:54
DX: H66.91 Otitis media, unspecified, right ear (principal); Z20.822 Contact with and (suspected) exposure to COVID-19; J06.9 Acute upper respiratory infection, unspecified; Z79.899 Other long term (current) drug therapy
CPT/HCPCS: 99283; 87635; 87880; 87804 ×2; 96372; J1100